=== PATIENT | female | born 1990 | race Caucasian/White ===

== ENCOUNTER 2017-06-27 13:40 | Emergency (ER) | payer OTHER, SELFPAY ==
[2017-06-27 13:40] VITALS: BMI 21.2
[2017-06-27 13:48] VITALS: TEMP 98; O2SAT 100
[2017-06-27] MEDS ORDERED: Sodium Chloride 0.9% 1,000 ML IV ONE (14:36)
--- NOTE | 2017-06-27 14:36 | C.PDOC ---
History Of Present Illness 26 y/o female presents to ED with complaints of bilateral LQ pain, bloating and diarrhea for 3 days. Patient states symptoms worsen after eating and drinking. Patient reports watery bowel movement and denies fever, vomiting, UTI symptoms or any other complaints at this time. B/L LQ PAIN, BLOATING DIARRHEA X 3 DAYS. SX WORSE AFTER EATING, DRINKING. WATERY BM. NO FEVER, VOMITING. NO UTI SX. PSH NEG EXAM MILD DIST NONTOXIC ABD R>LLQ TEND MOD SOFT NO R/G REMAINDER NEG Time Seen by Provider: 06/27/17 14:30 Chief Complaint (Nursing): Abdominal Pain History Per: Patient History/Exam Limitations: no limitations Onset/Duration Of Symptoms: Days Current Symptoms Are (Timing): Still Present Past Medical History Reviewed: Historical Data, Nursing Documentation, Vital Signs Vital Signs: Last Vital Signs Temp 98.0 F 06/27/17 13:46 Pulse 76 06/27/17 13:46 Resp 20 06/27/17 13:46 BP 120/74 06/27/17 13:46 Pulse Ox 100 06/27/17 15:46 - Medical History PMH: Kidney Stones Surgical History: No Surg Hx - [facility] Procedures LAPAROSCOPIC CHOLECYSTECTOMY (04/23/15) Family History: States: No Known Family Hx - Social History Hx Tobacco Use: No Hx Alcohol Use: No Hx Substance Use: No - Immunization History Hx Tetanus Toxoid Vaccination: No Hx Influenza Vaccination: No Hx Pneumococcal Vaccination: No Review Of Systems Except As Marked, All Systems Reviewed And Found Negative. Constitutional: Negative for: Fever, Chills Gastrointestinal: Positive for: Abdominal Pain, Diarrhea. Negative for: Vomiting Genitourinary: Negative for: Dysuria, Hematuria Musculoskeletal: Negative for: Back Pain Skin: Negative for: Rash Neurological: Negative for: Weakness, Numbness Physical Exam - Physical Exam Appears: Non-toxic, Other (Mild distress) Skin: Normal Color, Warm, Dry, No Rash Head: Normacephalic Eye(s): bilateral: Normal Inspection Oral Mucosa: Moist Neck: Normal ROM, Supple Chest: Symmetrical Gastrointestinal/Abdominal: Soft (moderate), Tenderness (R>L lower quadrant), No Guarding, No Rebound Back: No CVA Tenderness, No Paraspinal Tenderness Extremity: Normal ROM, Capillary Refill (<2 seconds) Neurological/Psych: Oriented x3 ED Course And Treatment - Laboratory Results Result Diagrams: 06/27/17 15:13 06/27/17 15:13 O2 Sat by Pulse Oximetry: 100 (RA) Pulse Ox Interpretation: Normal Progress - Data Reviewed Data Reviewed: Lab, Diagnostic imaging Disposition Counseled Patient/Family Regarding: Studies Performed, Diagnosis, Need For Followup, Rx Given - Disposition Referrals: [facility] [Outside] [facility] [Outside] Disposition: HOME/ ROUTINE Disposition Time: 17:05 Condition: IMPROVED Prescriptions: Ciprofloxacin [Cipro] 1 tab PO BID #14 tab Dicyclomine [Bentyl] 20 mg PO TID PRN #12 tab PRN Reason: Pain Metronidazole [Flagyl] 500 mg PO BID #14 tab Instructions: Acute Diarrhea (ED) Forms: [facility] (Maltese), Work Excuse Print Language: MOROCCAN - Clinical Impression Clinical Impression: Diarrhea - Scribe Statement The provider has reviewed the documentation as recorded by the Scribanjana Silver All medical record entries made by the Dyllanibanjana were at my direction and personally dictated by me. I have reviewed the chart and agree that the record accurately reflects my personal performance of the history, physical exam, medical decision making, and the department course for this patient. I have also personally directed, reviewed, and agree with the discharge instructions and disposition.
[2017-06-27] MEDS ORDERED: Sodium Chloride 0.9% 1,000 ML ONE (15:01)
[2017-06-27 15:23] LABS: BASO # 0.1 K/uL (0.0-0.2); BASO % 1.1 % (0.0-2.0); EOS # 0.1 K/uL (0.0-0.7); EOS % 1.3 % (0.0-4.0); HEMATOCRIT 31.5 % (34.0-47.0); LYMPH # 1.4 K/uL (1.0-4.3); LYMPH % 26.2 % (20.0-40.0); MEAN CORPUSCULAR HEMOGLOBIN 22.2 pg (27.0-31.0); MEAN CORPUSCULAR HGB CONC 32.2 g/dL (33.0-37.0); MEAN PLATELET VOLUME 8.3 fL (7.2-11.7); MONO # 0.4 K/uL (0.0-0.8); MONO % 7.3 % (0.0-10.0); RED CELL DISTRIBUTION WIDTH 17.1 % (11.5-14.5); WHITE BLOOD COUNT 5.4 K/uL (4.8-10.8)
[2017-06-27 15:27] LABS: MEAN CELL VOLUME 69.1 fL (81.0-99.0)
[2017-06-27 15:29] LABS: CHLORIDE 101 mmol/L (98-107); POTASSIUM 4.2 mmol/L (3.6-5.2); SODIUM 137 mmol/L (132-148)
[2017-06-27 15:32] LABS: BLOOD UREA NITROGEN 11 mg/dL (7-17); CARBON DIOXIDE 21 mmol/L (22-30); GFR AFRICAN-AMERICAN > 60
[2017-06-27 15:33] LABS: CALCIUM 9.8 mg/dl (8.6-10.4); GLUCOSE,RANDOM 83 mg/dL (65-105)
[2017-06-27 16:42] LABS: RBC URINE 1 /hpf (0-3); URINE BACTERIA OCC (<OCC); URINE BILIRUBIN NEGATIVE (NEGATIVE); URINE BLOOD NEGATIVE (NEGATIVE); URINE COLOR Yellow (YELLOW); URINE GLUCOSE (UA) NORMAL (Normal); URINE KETONE NEGATIVE (NEGATIVE); URINE LEUKOCYTE ESTERASE 2+ Leu/uL (Negative); URINE PROTEIN NEGATIVE (NEGATIVE); URINE UROBILINOGEN NORMAL mg/dL (0.2-1.0); WBC URINE 28 /hpf (0-5)
[2017-06-27 17:23] VITALS: BP 119/72; PULSE 79; RESP 18
== END 2017-06-27 17:23 | disposition home or self-care (01) ==
LOC: C.ER 13:40
DX: R19.7 Diarrhea, unspecified (principal)
CPT/HCPCS: 80048; 81001; 85025; 96360; 96372; 99284; J0500; J7040

== ENCOUNTER 2017-11-14 09:01 | Emergency (ER) | payer OTHER ==
[2017-11-14 09:29] VITALS: BMI 24.0
[2017-11-14 09:30] VITALS: TEMP 101.4
[2017-11-14] MEDS ORDERED: Naproxen 550 mg Tab PO STA (10:03)
--- NOTE | 2017-11-14 10:10 | C.PDOC ---
History Of Present Illness 27 year old female presents to the ER with a complaint of a fever, chills, productive cough, headache, nasal congestion, and body aches since last night. Denies sick contact, recent travel, or abdominal pain. Time Seen by Provider: 11/14/17 09:35 Chief Complaint (Nursing): Flu-like Symptoms History Per: Patient History/Exam Limitations: no limitations Onset/Duration Of Symptoms: Hrs Current Symptoms Are (Timing): Still Present Location Of Pain: Diffuse Myalgias, Headache Associated Symptoms: Fever, Chills, Cough (Productive), Myalgias, Nasal Congestion, Other (Headache) Ear Symptoms: Bilateral: None Recent travel outside of the [place]: No Past Medical History Reviewed: Historical Data, Nursing Documentation, Vital Signs Vital Signs: Last Vital Signs Temp 101.4 F H 11/14/17 09:29 Pulse 99 H 11/14/17 10:32 Resp 16 11/14/17 10:32 BP 110/77 11/14/17 10:32 Pulse Ox 98 11/14/17 10:32 - Medical History PMH: Kidney Stones Surgical History: Cholecystectomy - [facility] Procedures LAPAROSCOPIC CHOLECYSTECTOMY (04/23/15) Family History: States: Unknown Family Hx - Social History Hx Tobacco Use: No Hx Alcohol Use: No Hx Substance Use: No - Immunization History Hx Tetanus Toxoid Vaccination: No Hx Influenza Vaccination: No Hx Pneumococcal Vaccination: No Review Of Systems Except As Marked, All Systems Reviewed And Found Negative. Constitutional: Positive for: Fever, Chills ENT: Positive for: Nose Congestion Respiratory: Positive for: Cough (Productive) Musculoskeletal: Positive for: Other (Body aches) Neurological: Positive for: Headache Physical Exam - Physical Exam Appears: Non-toxic, Other (Uncomfortable) Skin: Normal Color, Warm, Dry Head: Atraumatic, Normacephalic Eye(s): bilateral: Normal Inspection Ear(s): Bilateral: Normal Nose: Normal Oral Mucosa: Moist Throat: Normal, No Erythema, No Exudate Neck: Normal, Supple Chest: Symmetrical, No Tenderness Cardiovascular: Rhythm Regular Respiratory: Normal Breath Sounds, No Rales, No Rhonchi, No Wheezing Gastrointestinal/Abdominal: Soft, No Tenderness Neurological/Psych: Oriented x3, Normal Speech ED Course And Treatment O2 Sat by Pulse Oximetry: 99 (Room air) Pulse Ox Interpretation: Normal Progress Note: Patient presents with flu like symptoms will treat with naproxen and tamiflu. Patient reports improvement of symptoms, will discharge home with instructions to follow up with PMD or return if symptoms worsen. Disposition Counseled Patient/Family Regarding: Diagnosis, Need For Followup, Rx Given - Disposition Referrals: [facility] [Outside] Disposition: HOME/ ROUTINE Disposition Time: 10:30 Condition: STABLE Additional Instructions: FOLLOW UP WITH YOUR DOCTOR/CLINIC IN 1-2 DAYS USE MEDICATION DIRECTED DRINK PLENTY OF CLEAR FLUIDS RETURN TO EMERGENCY ROOM IF SYMPTOMS WORSEN SEGUIMIENTO CON CAMPOS MDICO / CLNICA EN 1-2 [place] USE MEDICAMENTOS SEGN SE INDICA BRYNN UN MONTN DE FLUIDOS KRISTIE REGRESE AL BENJAMIN DE EMERGENCIA SI LOS SNTOMAS EMPEORAN Prescriptions: Naproxen 375 mg PO BID PRN #20 tablet PRN Reason: pain Oseltamivir Phosphate [Tamiflu] 75 mg PO BID #10 capsule Phenol/Glycerin [Chloraseptic Max Vershire] 1 spray MM Q6 PRN #1 spray PRN Reason: THROAT PAIN Instructions: Flu, Adult (DC) Forms: [employer] (Citizen Of [place]), Work Excuse Print Language: BENINESE - POA Present On Arrival: None - Clinical Impression Clinical Impression: Influenza - Scribe Statement The provider has reviewed the documentation as recorded by the Scribanjana Reynolds All medical record entries made by the Scribe were at my direction and personally dictated by me. I have reviewed the chart and agree that the record accurately reflects my personal performance of the history, physical exam, medical decision making, and the department course for this patient. I have also personally directed, reviewed, and agree with the discharge instructions and disposition.
[2017-11-14] MEDS ORDERED: Naproxen 550 mg Tab PO ONE (10:11)
[2017-11-14 10:35] VITALS: BP 110/77; PULSE 99; RESP 16
[2017-11-14 12:09] VITALS: O2SAT 99
== END 2017-11-14 10:35 | disposition home or self-care (01) ==
LOC: C.ER 09:01
DX: J11.1 Influenza due to unidentified influenza virus with other respiratory manifestations (principal)

== ENCOUNTER 2018-01-25 22:41 | Emergency (ER) | payer SELFPAY ==
[2018-01-25 22:41] VITALS: BMI 24.0
[2018-01-25 23:08] VITALS: BP 128/76; PULSE 70; RESP 20; TEMP 98.2; O2SAT 100
--- NOTE | 2018-01-25 23:26 | C.PDOC ---
History Of Present Illness Patient presents to ED requesting test. She states she has been sexually active and is still getting her menstrual period, however she has noticed weight gain. She reports occasional breast pain. She has gained almost 30 pounds in 3 months. She denies any abdominal pain, vomiting, or other associated complaints. Time Seen by Provider: 01/25/18 23:14 Chief Complaint (Nursing): Female Genitourinary History Per: Patient History/Exam Limitations: no limitations Onset/Duration Of Symptoms: Days Current Symptoms Are (Timing): Still Present Recent travel outside of the [place] States: No Past Medical History Reviewed: Historical Data, Nursing Documentation, Vital Signs Vital Signs: Last Vital Signs Temp 98.2 F 01/25/18 22:59 Pulse 70 01/25/18 22:59 Resp 20 01/25/18 23:48 BP 128/76 01/25/18 22:59 Pulse Ox 100 01/25/18 23:41 - Medical History PMH: Kidney Stones Surgical History: Cholecystectomy - [facility] Procedures LAPAROSCOPIC CHOLECYSTECTOMY (04/23/15) Family History: States: Unknown Family Hx - Social History Hx Tobacco Use: No Hx Alcohol Use: No Hx Substance Use: No - Immunization History Hx Tetanus Toxoid Vaccination: No Hx Influenza Vaccination: No Hx Pneumococcal Vaccination: No Review Of Systems Constitutional: Positive for: Other (Weight gain). Negative for: Fever, Chills Gastrointestinal: Negative for: Nausea, Vomiting, Abdominal Pain Musculoskeletal: Positive for: Other (occasional breast pain) Neurological: Negative for: Headache, Dizziness Physical Exam - Physical Exam Appears: Non-toxic, No Acute Distress Skin: Normal Color, Warm, Dry Head: Atraumatic, Normacephalic Eye(s): bilateral: Normal Inspection, EOMI Oral Mucosa: Moist Neck: Normal ROM Chest: Symmetrical, No Tenderness Cardiovascular: Rhythm Regular Respiratory: Normal Breath Sounds, No Rales, No Rhonchi, No Wheezing Gastrointestinal/Abdominal: Soft, No Tenderness, No Distention, No Guarding Extremity: Bilateral: Atraumatic, Normal Color And Temperature Neurological/Psych: Oriented x3, Normal Speech, Other (No focal deficits) ED Course And Treatment O2 Sat by Pulse Oximetry: 100 (Room air) Pulse Ox Interpretation: Normal Medical Decision Making Medical Decision Making: POC test ordered. Test was negative. Explained result to patient. She was resting comfortably in the ER in no acute distress, vitals are stable, will discharge home with instructions to follow up with PMD. Disposition Counseled Patient/Family Regarding: Diagnosis, Need For Followup - Disposition Referrals: [facility] [Outside] Disposition: HOME/ ROUTINE Disposition Time: 23:40 Condition: GOOD Additional Instructions: test was negative Please follow up in the clinic for further evaluation You may call [facility] for any assistance [phone]. Return to the emergency department at any time if symptoms persist or worsen. 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 - Scribe Statement The provider has reviewed the documentation as recorded by the Scribanjana Reynolds All medical record entries made by the Dyllanibanjana were at my direction and personally dictated by me. I have reviewed the chart and agree that the record accurately reflects my personal performance of the history, physical exam, medical decision making, and the department course for this patient. I have also personally directed, reviewed, and agree with the discharge instructions and disposition.
== END 2018-01-25 23:48 | disposition home or self-care (01) ==
LOC: C.ER 22:41
DX: Z32.02 Encounter for pregnancy test, result negative (principal)

== ENCOUNTER 2018-09-17 23:44 | Emergency (ER) | payer SELFPAY ==
[2018-09-17 23:46] VITALS: BMI 24.0
[2018-09-18] VITALS: RESP 18; O2SAT 100
[2018-09-18] MEDS ORDERED: Sodium Chloride 0.9% 1,000 ML IV ONE (00:03)
--- NOTE | 2018-09-18 00:03 | C.PDOC ---
History Of Present Illness 28 year old female, , 4 weeks presents to the ED c/o suprapubic abdominal cramping and vaginal spotting. Patient denies fever, chills, nausea, vomit, diarrhea, back pain, dysuria, hematuria. Time Seen by Provider: 09/18/18 00:03 Chief Complaint (Nursing): Female Genitourinary History Per: Patient History/Exam Limitations: no limitations Onset/Duration Of Symptoms: Days Current Symptoms Are (Timing): Still Present Quality Of Discomfort: Cramping Associated Symptoms: denies: Nausea, Vomiting, Diarrhea, Urinary Symptoms Recent travel outside of the [place]: No Additional History Per: Patient Abnormal Vaginal Bleeding: Yes Last Menstral Period: 08/06/18 : 3 Para: 2 Past Medical History Reviewed: Historical Data, Nursing Documentation, Vital Signs Vital Signs: Last Vital Signs Temp 98.1 F 09/17/18 23:56 Pulse 84 09/17/18 23:56 Resp 18 09/17/18 23:56 BP 128/81 09/17/18 23:56 Pulse Ox 100 09/17/18 23:56 - Medical History PMH: Kidney Stones Surgical History: Cholecystectomy - [facility] Procedures LAPAROSCOPIC CHOLECYSTECTOMY (04/23/15) Family History: States: Unknown Family Hx - Social History Hx Tobacco Use: No Hx Alcohol Use: No Hx Substance Use: No - Immunization History Hx Tetanus Toxoid Vaccination: No Hx Influenza Vaccination: No Hx Pneumococcal Vaccination: No Review Of Systems Constitutional: Negative for: Fever, Chills Cardiovascular: Negative for: Chest Pain Respiratory: Negative for: Shortness of Breath Gastrointestinal: Positive for: Abdominal Pain. Negative for: Nausea, Vomiting, Diarrhea Genitourinary: Positive for: Vaginal Bleeding. Negative for: Dysuria, Kristian turia, Vaginal Discharge Musculoskeletal: Negative for: Back Pain Skin: Negative for: Rash Physical Exam - Physical Exam Appears: Non-toxic, No Acute Distress Skin: Warm, Dry Head: Normacephalic Eye(s): bilateral: Normal Inspection Oral Mucosa: Moist Neck: Supple Chest: Symmetrical Cardiovascular: Rhythm Regular Respiratory: No Rales, No Rhonchi, No Wheezing Gastrointestinal/Abdominal: Soft, Tenderness (mild suprapubuc), No Guarding, No Rebound Back: No CVA Tenderness Extremity: Bilateral: Atraumatic, Normal Color And Temperature, Normal ROM Neurological/Psych: Oriented x3, Normal Speech, Normal Cognition Gait: Steady ED Course And Treatment - Laboratory Results Result Diagrams: 09/18/18 00:36 09/18/18 00:36 O2 Sat by Pulse Oximetry: 100 (ON RA) Pulse Ox Interpretation: Normal - CT Scan/US Pelvic US Other Rad Studies (CT/US): Read By Radiologist, Radiology Report Reviewed CT/US Interpretation: EXAM: US Obstetrical, Complete <14 weeks. CLINICAL HISTORY: Vag bleed , hcg 39144. TECHNIQUE: Transvaginal and transabdominal imaging of the maternal pelvis and a <14 week gestation with image documentation. COMPARISON: None provided. FINDINGS: GESTATION: Single IUP. Gestational sac measures 1.21 cm corresponds to 5 W 2 D. Yolk sac is seen, 0.29 cm. No pole or heart beat. UTERUS: Unremarkable. No myometrial mass. CERVIX: Closed. Unremarkable. OVARIES: 2.9 cm left ovarian corpus lutheum cyst is seen. Otherwise unremarkable. No mass. FREE FLUID: Trace free fluid. IMPRESSION: Early single intrauterine , 5 W 2 D. No pole or heart beat. Follow up study in 7-10 days is recommended. No acute abnormality. . Electronically signed on Sep 18, 2018 4:27:15 AM EST by: Earl Dickinson M.D., LEONILA Certified By ABR & CBCCT. Fellowship Trained MRI and CT Specialist. Progress Note: Plan: - Labs. - IV fluids. - UA Medical Decision Making Medical Decision Making: Upon provider reevaluation patient is feeling better, is medically stable, and requires no further treatment in the ED at this time. Patient will be discharged home . Counseling was provided and all questions were answered regarding diagnosis and need for follow up with the referred clinic. There is agreement to discharge plan. Return if symptoms persist or worsen. Disposition Counseled Patient/Family Regarding: Studies Performed, Diagnosis, Need For Followup - Disposition Referrals: [facility] [Outside] [facility] [Outside] Disposition: HOME/ ROUTINE Disposition Time: 00:03 Condition: FAIR Additional Instructions: Please follow up with your master fire control technician and have a repeat ultrasound in 7-10 days Instructions: Threatened Miscarriage (DC), Bleeding With (DC) Forms: [employer] (Georgian) - Clinical Impression Clinical Impression: Threatened - Scribe Statement The provider has reviewed the documentation as recorded by the Scribe Hugo Glasgowjia All medical record entries made by the Scribe were at my direction and personally dictated by me. I have reviewed the chart and agree that the record a ccurately reflects my personal performance of the history, physical exam, medical decision making, and the department course for this patient. I have also personally directed, reviewed, and agree with the discharge instructions and disposition.
[2018-09-18 00:41] LABS: BASO # 0.1 K/uL (0.0-0.2); BASO % 1.1 % (0.0-2.0); EOS # 0.2 K/uL (0.0-0.7); EOS % 2.8 % (0.0-4.0); HEMOGLOBIN 9.6 g/dL (11.0-16.0); LYMPH % 27.8 % (20.0-40.0); MEAN CELL VOLUME 69.5 fL (81.0-99.0); MEAN CORPUSCULAR HEMOGLOBIN 21.8 pg (27.0-31.0); MEAN CORPUSCULAR HGB CONC 31.4 g/dL (33.0-37.0); MONO # 0.7 K/uL (0.0-0.8); MONO % 9.6 % (0.0-10.0); NEUT # 4.2 K/uL (1.8-7.0); NEUT % 58.7 % (50.0-75.0); RBC 4.39 Mil/uL (3.80-5.20); WHITE BLOOD COUNT 7.2 K/uL (4.8-10.8)
[2018-09-18 00:44] LABS: SQUAMOUS EPITHIAL 2 /hpf (0-5); URINE BILIRUBIN NEGATIVE (NEGATIVE); URINE BLOOD 1+ (NEGATIVE); URINE CLARITY Clear (Clear); URINE COLOR Yellow (YELLOW); URINE GLUCOSE (UA) NORMAL (Normal); URINE LEUKOCYTE ESTERASE NEG Leu/uL (Negative); URINE PROTEIN NEGATIVE (NEGATIVE); URINE UROBILINOGEN NORMAL mg/dL (0.2-1.0)
[2018-09-18 00:48] LABS: INR 1.1; PROTHROMBIN TIME 12.3 SECONDS (9.7-12.2)
[2018-09-18 00:57] LABS: ALB/GLOB RATIO 1.5 (1.0-2.1); ALBUMIN 4.4 g/dL (3.5-5.0); ALT/SGPT 17 U/L (9-52); AST/SGOT 21 U/L (14-36); BLOOD UREA NITROGEN 9 mg/dL (7-17); CALCIUM 10.1 mg/dl (8.6-10.4); GFR NON-AFRICAN AMERICAN > 60
[2018-09-18 04:49] VITALS: BP 126/80; PULSE 78; TEMP 98.4
--- NOTE | 2018-09-18 10:11 | US ---
Date of service: 09/18/2018 PROCEDURE: HISTORY: Vaginal bleeding. Beta hCG 54663 units. COMPARISON: None TECHNIQUE: Standard protocol for this study/examination. FINDINGS: LMP: Prior examinations from the current : TECHNIQUE: Real-time 2D imaging, duplex and color Doppler. FINDINGS: No pole identified. Gestational age 5 weeks 2 days based on gestational sac measurement 1.21 cm Gestational age derived from LMP: 6 weeks 1 day JEFF based on LMP: 05/13/2019 JEFF based on biometry: 05/19/2019 Gestational concordance noted. Yolk sac identified Cervix: No Cervical abnormalities: Negative examination for cervical dilatation or effacement. Closed cervix measuring 3.48 cm Subchorionic hemorrhage: None UTERUS: 4.6 x 5.2 x 9.6 cm. ADNEXA: Right: 2 x 2.9 x 2.8 cm. Normal Doppler arterial waveform documented. Left: 3.1 x 3.5 x 4.2 cm. Simple left adnexal cyst 2.8 x 2.9 cm normal Doppler arterial waveform documented Fluid in the cul-de-sac: Trace fluid in the cul-de-sac and adjacent to the right adnexa. IMPRESSION: Early intrauterine gestation based on gestational sac measurement. Yolk sac identified. No pole noted. Concordant findings (preliminary report) provided by [facility].
== END 2018-09-18 04:49 | disposition home or self-care (01) ==
LOC: C.ER 23:44 → SUPCPDRO 23:44 → C.ER 09-18 04:49
DX: O20.0 Threatened abortion (principal); Z3A.01 Less than 8 weeks gestation of pregnancy
CPT/HCPCS: 76805; 76817; 80053; 81001; 84702; 85025; 85610; 85730; 86850; 86900; 96360; 99284; J7030

== ENCOUNTER 2018-10-14 20:16 | Emergency (ER) | payer SELFPAY | END 2018-10-14 23:06 | disposition home or self-care (01) | LOC: C.ER 20:16 ==

== ENCOUNTER 2018-12-10 09:04 | Emergency (ER) | payer MEDICAID, OTHER ==
[2018-12-10 09:04] VITALS: BMI 24.0
[2018-12-10 09:12] VITALS: O2SAT 100
[2018-12-10] MEDS ORDERED: Sodium Chloride 0.9% 1,000 ML IV STA ×2 (09:27→11:17)
[2018-12-10] MEDS ORDERED: Sodium Chloride 0.9% 1,000 ML ONE (09:38)
[2018-12-10 09:56] LABS: BASO % 0.3 % (0.0-2.0); EOS % 0.6 % (0.0-4.0); LYMPH # 0.4 K/uL (1.0-4.3); LYMPH % 7.4 % (20.0-40.0); MEAN CORPUSCULAR HEMOGLOBIN 28.1 pg (27.0-31.0); MEAN CORPUSCULAR HGB CONC 33.4 g/dL (33.0-37.0); MEAN PLATELET VOLUME 8.7 fL (7.2-11.7); MONO # 0.2 K/uL (0.0-0.8); MONO % 3.7 % (0.0-10.0); NEUT # 5.3 K/uL (1.8-7.0); RBC 4.51 Mil/uL (3.80-5.20); RED CELL DISTRIBUTION WIDTH 18.9 % (11.5-14.5)
[2018-12-10 09:58] LABS: HEMOGLOBIN 12.7 g/dL (11.0-16.0)
[2018-12-10 09:59] LABS: MEAN CELL VOLUME 84.1 fL (81.0-99.0); PLATELET COUNT 244 K/uL (130-400)
[2018-12-10 10:38] LABS: ALB/GLOB RATIO 1.4 (1.0-2.1); ALBUMIN 3.8 g/dL (3.5-5.0); ALT/SGPT 17 U/L (9-52); AST/SGOT 29 U/L (14-36); BLOOD UREA NITROGEN 6 mg/dL (7-17); CALCIUM 10.2 mg/dl (8.6-10.4); GFR NON-AFRICAN AMERICAN > 60; LIPASE 60 U/L (23-300)
--- NOTE | 2018-12-10 10:47 | C.PDOC ---
History Of Present Illness 28 y/o female, 17 weeks , presents to the ER complaining of abdominal pain and vomiting which began last night.Patient describes the pain as cramping. Patient states that her child was sick with similar symptoms. Patient denies having fever,chills,CP,SOB, and vaginal bleeding. Time Seen by Provider: 12/10/18 09:18 Chief Complaint (Nursing): GI Problem History Per: Patient History/Exam Limitations: no limitations Onset/Duration Of Symptoms: Days Current Symptoms Are (Timing): Still Present Severity: Moderate Past Medical History Reviewed: Historical Data, Nursing Documentation, Vital Signs Vital Signs: Last Vital Signs Temp 98.5 F 12/10/18 09:08 Pulse 92 H 12/10/18 09:08 Resp 20 12/10/18 09:08 BP 122/79 12/10/18 09:08 Pulse Ox 100 12/10/18 09:08 - Medical History PMH: Kidney Stones (with basketting) Surgical History: Cholecystectomy - [facility] Procedures LAPAROSCOPIC CHOLECYSTECTOMY (04/23/15) Family History: States: No Known Family Hx - Social History Hx Tobacco Use: No Hx Alcohol Use: No Hx Substance Use: No - Immunization History Hx Tetanus Toxoid Vaccination: Yes Hx Influenza Vaccination: Yes Hx Pneumococcal Vaccination: No Review Of Systems Except As Marked, All Systems Reviewed And Found Negative. Constitutional: Negative for: Fever, Chills Gastrointestinal: Positive for: Vomiting, Abdominal Pain Genitourinary: Negative for: Dysuria, Hematuria, Vaginal Bleeding Physical Exam - Physical Exam Appears: Non-toxic, No Acute Distress, Other (comfortable, no active vomiting) Skin: Normal Color, Warm, Dry Head: Atraumatic, Normacephalic Eye(s): bilateral: Normal Inspection Nose: Normal Oral Mucosa: Moist Neck: Supple Chest: Symmetrical Cardiovascular: Rhythm Regular Respiratory: Normal Breath Sounds, No Rales, No Rhonchi, No Wheezing Gastrointestinal/Abdominal: Soft, Tenderness (diffuse tenderness), No Guarding, No Rebound Neurological/Psych: Oriented x3, Normal Speech ED Course And Treatment - Laboratory Results Result Diagrams: 12/10/18 09:50 12/10/18 09:50 Lab Results: Total Bilirubin 1.0 mg/dL (0.2-1.3) 12/10/18 09:50 AST 29 U/L (14-36) 12/10/18 09:50 ALT 17 U/L (9-52) 12/10/18 09:50 Alkaline Phosphatase 71 U/L (38-126) 12/10/18 09:50 Total Protein 6.4 g/dL (6.3-8.3) 12/10/18 09:50 Albumin 3.8 g/dL (3.5-5.0) 12/10/18 09:50 Globulin 2.7 gm/dL (2.2-3.9) 12/10/18 09:50 Albumin/Globulin Ratio 1.4 (1.0-2.1) 12/10/18 09:50 Lipase 60 U/L (23-300) 12/10/18 09:50 O2 Sat by Pulse Oximetry: 100 (RA) Pulse Ox Interpretation: Normal - CT Scan/US US-OB Other Rad Studies (CT/US): Read By Radiologist, Radiology Report Reviewed CT/US Interpretation: Indication: abd pain, vomiting, diarrhea. Comparison: Ob transvaginal ultrasound performed 10/14/18. Technique: Real-time ultrasound was performed through the pelvis. Findings: There is a single living fetus in cephalic presentation. Posterior placenta. The placenta is not previa. There are no adnexal masses or cysts evident. Cervix length measures approximately 3.3 cm. Measurements and calculations: Fetus has a composite sonographic age of 17 weeks 4 days. This calculation is based on the biparietal diameter, head circumference, abdominal circumference, and femur length. Estimated heart rate 168.4 beats per min. Estimated weight 196.8 g. Impression: Single living fetus with a composite sonographic age of 17 weeks 4 days. Estimated heart rate 168.4 beats per min. The study was performed for emergent evaluation, and the whole anatomic survey of the fetus was not performed. This should be performed on an outpatient elective basis as clinically warranted. Progress Note: Labs and US-OB ordered. Patient treated with Zofran IV, Pepcid IV, and IV Fluids. On re-evaluation patient feels better, tolerates po and is stable to be d/c home with OBGYN follow up. Disposition - Disposition Disposition: HOME/ ROUTINE Disposition Time: 13:04 Condition: IMPROVED Additional Instructions: Follow up with PMD and OBGYN within 1-2 days. Return to ED if feel worse. Prescriptions: Nitrofurantoin Macrocrystals [Macrobid] 1 cap PO BID #14 cap Ondansetron ODT [Zofran ODT] 4 mg PO Q6 #20 odt Instructions: Diarrhea in Adolescents and Adults, Nausea and Vomiting, Adult (DC) Forms: [facility] (Welsh), Work Excuse Print Language: UPPER SORBIAN - Clinical Impression Clinical Impression: Gastroenteritis, UTI (urinary tract infection) - PA / RN SOCIAL WORK / Resident Statement MD/DO has reviewed & agrees with the documentation as recorded. - Scribe Statement The provider has reviewed the documentation as recorded by the Juan Zhu Provider Attestation All medical record entries made by the Juan were at my direction and personally dictated by me. I have reviewed the chart and agree that the record accurately reflects my personal performance of the history, physical exam, medical decision making, and the department course for this patient. I have also personally directed, reviewed, and agree with the discharge instructions and disposition.
[2018-12-10 11:05] LABS: ANISOCYTOSIS SLIGHT; BANDS 4 % (0-2); LYMPHOCYTE 7 % (20-40); MONOCYTE 3 % (0-10); NEUTROPHIL 85 % (50-75); PLATELET ESTIMATE NORMAL (NORMAL); REACTIVE LYMPHOCYTES 1 % (0-0); TOTAL CELLS COUNTED 100
--- NOTE | 2018-12-10 11:08 | US ---
Indication: abd pain, vomiting, diarrhea Comparison: Ob transvaginal ultrasound performed 10/14/18 Technique: Real-time ultrasound was performed through the pelvis. Findings: There is a single living fetus in cephalic presentation. Posterior placenta. The placenta is not previa. There are no adnexal masses or cysts evident. Cervix length measures approximately 3.3 cm. Measurements and calculations: Fetus has a composite sonographic age of 17 weeks 4 days. This calculation is based on the biparietal diameter, head circumference, abdominal circumference, and femur length. Estimated heart rate 168.4 beats per min. Estimated weight 196.8 g. Impression: Single living fetus with a composite sonographic age of 17 weeks 4 days. Estimated heart rate 168.4 beats per min. The study was performed for emergent evaluation, and the whole anatomic survey of the fetus was not performed. This should be performed on an outpatient elective basis as clinically warranted.
[2018-12-10 12:48] LABS: SQUAMOUS EPITHIAL 4 /hpf (0-5); URINE BACTERIA MANY (<OCC); URINE BILIRUBIN NEGATIVE (NEGATIVE); URINE BLOOD NEGATIVE (NEGATIVE); URINE CLARITY Hazy (Clear); URINE COLOR Yellow (YELLOW); URINE GLUCOSE (UA) NORMAL (Normal); URINE LEUKOCYTE ESTERASE 3+ Leu/uL (Negative); URINE PROTEIN NEGATIVE (NEGATIVE); URINE UROBILINOGEN NORMAL mg/dL (0.2-1.0)
[2018-12-10 13:29] VITALS: BP 123/74; PULSE 88; RESP 18; TEMP 98.4
== END 2018-12-10 13:51 | disposition home or self-care (01) ==
LOC: C.ER 09:04
DX: O23.42 Unspecified infection of urinary tract in pregnancy, second trimester (principal); Z3A.17 17 weeks gestation of pregnancy; O26.892 Other specified pregnancy related conditions, second trimester; K52.9 Noninfective gastroenteritis and colitis, unspecified
CPT/HCPCS: 76815; 80053; 81001; 83690; 85025; 87086; 96361; 96374; 96375; 99285; J2405; J7030